=== PATIENT | male | born 1975 | race Caucasian/White ===

== ENCOUNTER 2019-12-05 14:19 | Observation (INO) | payer OTHER ==
[2019-12-05 14:48] LABS: #Basophils 0.1 thou/uL (0.0-0.2); #Eosinphils 0.2 thou/uL (0.0-0.7); #Lymphocytes 2.3 thou/uL (1.20-3.40); #Monocytes 0.8 thou/uL (0.11-0.59); #Neutrophils 5.2 thou/uL (1.40-6.50); %Eosinophils 2.2 % (0.0-10.0); %Monocytes 8.9 % (0.0-10.0); %Neutrophils 60.9 % (42.0-75.0); Hemoglobin 15.1 g/dL (14.0-18.0); Mean Corpuscular HGB CONC 33.1 g/dL (32.0-36.0); Mean Corpuscular Hemoglobin 30.1 pg (27.0-31.0); Mean Platelet Volume 7.3 fL (7.4-10.4); Platelet Count 343 thou/uL (130-400); RBC Distribution Width 11.9 % (11.5-14.5); Red Blood Cell (RBC) Count 5.02 mill/uL (4.70-6.10); White Blood Cell (WBC) Count 8.5 thou/uL (4.8-10.8)
[2019-12-05] MEDS ORDERED: Morphine 4 MG/ML VIAL ONE ×2 (14:50→16:52)
--- NOTE | 2019-12-05 14:55 | RAD ---
EXAM: CHEST ONE VIEW HISTORY: Patient is post esophageal stretching of a stricture and now complains of severe epigastric pain COMPARISON: Cardiology Coordinator chest x-ray on upper GI exam obtained at [facility] on 10/06/2017. FINDINGS: An oval-shaped metallic density overlies lower cervical spine which was also seen on the prior exam a nd is likely postoperative in origin. Cardiac silhouette and pulmonary vasculature are within normal limits. The lungs are clear. No pneumothorax or findings to suggest pneumomediastinum are seen . No free intraperitoneal air is seen beneath the hemidiaphragms. Osseous structures have a normal appearance. There has been no interval change from the prior exam. IMPRESSION: No acute cardiopulmonary process.
[2019-12-05 15:10] LABS: ALT (SGPT) 21 U/L (8-55); AST (SGOT) 19 U/L (5-34); Albumin 4.5 g/dL (3.5-5.0); Alkaline Phosphatase 97 U/L (40-110); Anion Gap 13 mmol/L (10-20); BUN (Urea Nitrogen) 14 mg/dL (8.9-20.6); Bilirubin, Total 0.8 mg/dL (0.2-1.2); Calc. Creatinine Clearance 0 mL/min (70-130); Calcium 9.2 mg/dL (7.8-10.44); Carbon Dioxide 25 mmol/L (22-29); Chloride 107 mmol/L (98-107); Estimated GFR-MDRD 85; Globulin 2.9 g/dL (2.4-3.5); Glucose 86 mg/dL (70-105); Potassium 3.9 mmol/L (3.5-5.1); Protein, Total 7.4 g/dL (6.0-8.3); Sodium 141 mmol/L (136-145)
[2019-12-05] MEDS ORDERED: Iopamidol-370 76% 500 ML 1 ML ONE (15:17)
[2019-12-05] MEDS ORDERED: Iopamidol 370 76% 50 ML VIAL FS ONE (15:17)
[2019-12-05] MEDS ORDERED: Lidocaine Viscous Sol 2% 15 ml UD Cup ONE (15:57)
[2019-12-05] MEDS ORDERED: Mag-Al 1200 mg/1200 mg/30 ML UDCUP ONE (15:57)
--- NOTE | 2019-12-05 15:57 | CT ---
CT CHEST WITH AND WITHOUT CONTRAST CLINICAL INDICATION: Concern for esophageal perforation. Patient is post esophageal stretching and now complains of severe epigastric abdominal pain. COMPARISON: None FINDINGS: Aorta: The aorta is normal in caliber without evidence of an aortic dissection. Lungs: Clear without evidence of consolidation or pleural effusion. No pneumothorax or pleural effusi on is identified. Mild dependent atelectasis is present at each lung base. Mediastinum: There is no evidence of pneumomediastinum. Mild distention of the upper esophagus as wel l as most distal esophagus are seen with contrast seen in the esophagus at these locations. Contrast is also seen in the stomach. No fluid is seen in the mediastinum, and no definite stranding is identified. No enlarged lymph nodes are seen by CT size criteria. Thyroid gland: Normal appearance where visualized. Osseous structures: Postoperative changes lower cervical spine are noted with intradiscal metallic sp acers identified at the C5-6 and C6-7 levels. Minimal degenerative change are seen in the thoracic spine. Chest wall: No abnormality visualized. Upper abdomen: Normal in appearance for phase of imaging. No free intraperitoneal gas or fluid is see n in the visualized upper abdomen. There is a hypodense lesion seen in the superior pole left kidney measuring 2.8 cm which is difficult to evaluate on arterial phase of imaging but does demonstr ate fluid attenuation and likely represents a cyst. IMPRESSION: 1. No acute findings. 2. No pneumothorax or pneumomediastinum is visualized. 3. Contrast is seen in the esophagus, and there is no evidence of extravasation of contrast. No infla mmatory stranding is seen in the mediastinum. 4. Above findings discussed Dr. Dunham in the emergency department on 12/05/2019 at 1550 hours.
[2019-12-05] MEDS ORDERED: Senokot S 8.6-50 MG TAB PO PRN (17:53)
[2019-12-05] MEDS ORDERED: Acetaminophen 325 MG TAB PO PRN (17:53)
[2019-12-05] MEDS ORDERED: Sodium Chloride 0.9% (PF) 10 ML VIAL FS PRN (18:33)
[2019-12-05] MEDS ORDERED: Pantoprazole 40 MG VIAL IVP SCH (18:45)
[2019-12-05] MEDS ORDERED: Ondansetron PF 4 MG/2 ML Vial IVP PRN (18:47)
[2019-12-05] MEDS ORDERED: Ondansetron ODT 4 MG TAB SL PRN (18:47)
[2019-12-05] MEDS: Morphine 4 MG/ML VIAL SLOW IVP PRN (20:39)
[2019-12-05] MEDS: Dextrose 5 % And 0.9 % NaCl 1,000 ML IV SCH (20:40)
[2019-12-05] MEDS: Lidocaine Viscous Sol 2% 15 ml UD Cup SSP SCH (20:47)
[2019-12-05 20:51] VITALS: BMI 23.8
[2019-12-05] MEDS ORDERED: Famotidine/PF 20 mg/2ml Vial SLOW IVP SCH (21:00)
[2019-12-06] MEDS: Piperacillin/Tazobactam 3.375 GM in Sodium Chloride 0.9% 100 ML IVPB SCH ×3 (00:07→11:18)
[2019-12-06] MEDS: Morphine 4 MG/ML VIAL SLOW IVP PRN (00:07)
--- NOTE | 2019-12-06 00:15 | CON ---
DATE OF CONSULTATION: 12/05/2019 I performed EGD for Mr. Moran today to evaluate dysphagia. He was found to have esophageal stricture at the distal esophagus and I passed an 18 mm Savary dilator to stretch the stricture. Second-look endoscopy showed tear just above the GE junction and also in the mid to lower esophagus. There is visualization of muscle fibers , but no evidence of perforation. He initially tolerated the dilation well. I biopsied the esophagus to evaluate for eosinophilic esophagitis. The remainder of the upper endoscopy was unremarkable. About 20 minutes after he left the endoscopy center, he developed pain in the lower substernal region after eating some tater tots. The pain was severe and persisted and he was directed to come onto the emergency room for pain control and to rule out perforation. CT scan of the chest showed no evidence of perforation. There is no free air. His pain is primarily located to the upper epigastric region just below the xiphoid process. His white blood cell count was normal. PHYSICAL EXAMINATION: ABDOMEN: Soft and nontender otherwise. LUNGS: Clear to auscultation bilaterally. HEART: Regular rate and rhythm. IMPRESSION: Upper epigastric to lower substernal pain following esophageal dilation of esophageal stricture. I suspect he has underlying eosinophilic esophagitis. There is no evidence of perforation at this point. Due to the severity of the pain and odynophagia, he will be admitted for pain control. RECOMMENDATIONS: 1. Proton pump inhibitor IV. 2. Viscous lidocaine. 3. IV pain medicine as needed, recommended by the Hospitalist Service. 4. As his pain improves then he could start with a clear liquid diet, but I would keep him n.p.o. for now otherwise. 5. Kori Job ID: [id number] MTDD
[2019-12-06] MEDS: Lidocaine Viscous Sol 2% 15 ml UD Cup SSP SCH ×4 (01:09→15:25)
--- NOTE | 2019-12-06 01:20 | HP ---
CHIEF COMPLAINT: Abdominal pain. HISTORY OF PRESENT ILLNESS: The patient is a very pleasant 44-year-old male who underwent an EGD and had a dilation of the stricture. Today, he stated that he was going home, ate a few tater tots, started having significant amount of cramping, followed by intense pain, so he came into the hospital for further evaluation. The patient underwent a CT chest to rule out any perforation. Also, GI was consulted and informed. The CT chest did not show any pneumothorax, any pneumomediastinum. Contrast was seen in the esophagus. No evidence of extravasation of the contrast. No inflammatory stranding is seen. At this time, the patient was admitted to the hospital for further evaluation. PAST MEDICAL HISTORY: He has a history of anxiety and depression. PAST SURGICAL HISTORY: He has had a disk repair in 2017 and also this current esophageal stricture dilation. ALLERGIES: NO KNOWN DRUG ALLERGIES. MEDICATIONS: He is on Lexapro and Ambien. FAMILY HISTORY: Mother at the age of 49 with carotid aneurysm. Father is still alive. REVIEW OF SYSTEMS: All negative except for the ones mentioned above in the HPI. LABORATORY RESULTS: WBCs of 8.5, hemoglobin 15.1, hematocrit of 45.7, platelets of 343. Chemistry; sodium of 141, potassium of 3.9, BUN of 14, creatinine 0.97. Troponin is normal. Lipase is normal. PHYSICAL EXAMINATION: VITAL SIGNS: Temperature 98.8, heart rate of 100, blood pressure of 115/60, 98% on room air. GENERAL: He is awake, alert, and oriented x3. Does not appear in distress. CARDIOVASCULAR: S1, S2 present. No murmurs, rubs, or gallops. LUNGS: Clear to auscultation. No rhonchi or wheezes noted. ABDOMEN: Soft. Bowel sounds present x2. Mild pain upon palpation around the epigastric area. EXTREMITIES: No edema. Pedal pulses present x2. NEUROVASCULAR: No focal deficits noted. SKIN: No cuts, lesions, or bruises noted. ASSESSMENT AND PLAN: The patient is a very pleasant 44-year-old male who presents to the hospital with complaints of abdominal pain after esophageal dilation procedure. 1. Odynophagia. The patient has significant pain after swallowing. I spoke with GI. We will start patient on some broad-spectrum antibiotics just prophylactically. We will keep him n.p.o. We will start on IV hydration. We will put him on a PPI and we will do viscous lidocaine for pain control and also p.r.n. IV morphine as needed. We will also check CBC and CMP in the morning and re-evaluate. 2. Anxiety, depression. We will continue his Lexapro and Ambien for tonight. 3. Deep venous thrombosis prophylaxis. We will put patient on some SCDs and subcu Lovenox. Job ID: [id number]
[2019-12-06] MEDS: Dextrose 5 % And 0.9 % NaCl 1,000 ML IV SCH ×2 (05:17→11:19)
[2019-12-06 06:34] LABS: #Eosinphils 0.1 thou/uL (0.0-0.7); #Lymphocytes 1.5 thou/uL (1.20-3.40); #Monocytes 0.8 thou/uL (0.11-0.59); #Neutrophils 5.2 thou/uL (1.40-6.50); %Basophils 0.3 % (0.0-1.0); %Eosinophils 1.7 % (0.0-10.0); %Lymphocytes 20.1 % (21.0-51.0); %Monocytes 10.1 % (0.0-10.0); %Neutrophils 67.7 % (42.0-75.0); Hemoglobin 14.2 g/dL (14.0-18.0); Mean Corpuscular HGB CONC 33.3 g/dL (32.0-36.0); Mean Corpuscular Hemoglobin 30.7 pg (27.0-31.0); Mean Corpuscular Volume 92.4 fL (78.0-98.0); Mean Platelet Volume 7.6 fL (7.4-10.4); Platelet Count 277 thou/uL (130-400); RBC Distribution Width 11.9 % (11.5-14.5); Red Blood Cell (RBC) Count 4.61 mill/uL (4.70-6.10); White Blood Cell (WBC) Count 7.6 thou/uL (4.8-10.8)
[2019-12-06 06:58] LABS: Anion Gap 10 mmol/L (10-20); BUN (Urea Nitrogen) 13 mg/dL (8.9-20.6); Calc. Creatinine Clearance 118 mL/min (70-130); Calcium 8.3 mg/dL (7.8-10.44); Carbon Dioxide 27 mmol/L (22-29); Chloride 107 mmol/L (98-107); Estimated GFR-MDRD 88; Glucose 106 mg/dL (70-105); Potassium 3.7 mmol/L (3.5-5.1); Sodium 140 mmol/L (136-145)
[2019-12-06] MEDS ORDERED: Pantoprazole 40 MG VIAL IVP SCH (09:00)
[2019-12-06 11:31] VITALS: TEMP 98.2
--- NOTE | 2019-12-06 16:10 | EKG ---
Test Reason : Blood Pressure : / mmHG Vent. Rate : 061 BPM Atrial Rate : 061 BPM P-R Int : 142 ms QRS Dur : 096 ms QT Int : 406 ms P-R-T Axes : 065 038 056 degrees QTc Int : 408 ms Normal sinus rhythm with sinus arrhythmia Normal ECG Confirmed by LAXMI ROMERO DO ([id number]), mapping editor ILIANA SUAREZ ([id number] on 12/06/2019 4:09:16 PM Referred By: Confirmed By:LAXMI ROMERO DO
[2019-12-06 16:33] VITALS: BP 109/68
--- NOTE | 2019-12-07 05:11 | DIS ---
DATE OF ADMISSION: 12/05/2019 DATE OF DISCHARGE: 12/06/2019 PRIMARY CARE PROVIDER: Dr. Eric Muller. DISCHARGE DIAGNOSIS: Odynophagia. CONDITION OF PATIENT ON THE DAY OF DISCHARGE: Stable. I assessed Mr. Moran on the day of discharge. He denies any chest pain or shortness of breath. Vital signs are stable. S1 and S2 are heard, regular. Lungs are clear to auscultation bilaterally. CONSULTATIONS DURING THIS HOSPITALIZATION: Gastroenterology, Dr. Metz. HOSPITAL COURSE: Mr. Moran is a pleasant 44-year-old gentleman, who was admitted to [facility] on December 05, 2019 for odynophagia following EGD. Please refer to Dr. Cavanaugh's history and physical note dated December 05, [address] scan did not show any pneumothorax or pneumomediastinum. There was no evidence of extravasation of contrast. There was no inflammatory stranding in the mediastinum. He was seen by Gastroenterology Service. He improved clinically and was tolerating diet on the day of discharge. He has been cleared for discharge by Gastroenterology Service. DIET: To be advanced as tolerated. ACTIVITY: No restrictions. POST ACUTE CARE FOLLOWUP: With primary care provider in 3 days. DISCHARGE DESTINATION: Home. Many thanks for allowing me to participate in your patient's care. Please feel free to contact me with any questions or concerns. Job ID: [id number]
== END 2019-12-06 18:07 | disposition home or self-care (01) ==
LOC: ERS 14:19 → T4-A 18:47
PROVIDERS: ADMIT Internal Medicine; ATTEND Internal Medicine
DX: R13.10 Dysphagia, unspecified (principal); R10.13 Epigastric pain; F41.9 Anxiety disorder, unspecified; F32.9 Major depressive disorder, single episode, unspecified; Z79.899 Other long term (current) drug therapy
CPT/HCPCS: 36415; 71045; 71270; 80048; 80053; 83690; 84484; 85025; 93005; 96361; 96365; 96374; 96375; 96376; C9113; G0378; J2270; J2543; J3490; Q9967

== ENCOUNTER → 2021-08-28 | Day surgery (SDC) | payer BC ==
[~2021-08-28] MED LIST: Dexamethasone 20 MG/5 ML VIAL ONE; Ketorolac Tromethamine 30 MG/ML VIAL ONE; Lidocaine 1% PF 5 ML VIAL ONE; Morphine 4 MG/ML VIAL ONE; Ondansetron PF 4 MG/2 ML Vial ONE; PROPOFOL 200 MG/20 ML VIAL ONE; Rocuronium Bromide 10 MG/ML (10ML VIAL) ONE; SUGAMMADEX SODIUM 200 MG/2 ML VIAL ONE
[2021-08-28 21:28] LABS: SARS-CoV-2 NAA Rapid Test Not Detected (NotDetected)
== END ==
LOC: ERS 20:02 → SDC 22:49 → ERS 08-29 00:25
PROVIDERS: ATTEND Internal Medicine
PROC: 0DJ08ZZ Inspection of Upper Intestinal Tract, Via Natural or Artificial Opening Endoscopic (ICD-10-PCS; principal; 2021-08-28)
DX: K20.0 Eosinophilic esophagitis (principal); K22.2 Esophageal obstruction; Z79.899 Other long term (current) drug therapy; Z20.822 Contact with and (suspected) exposure to COVID-19
CPT/HCPCS: 96374; 96375; J1100; J1885; J2270; J2405; J2704; U0002